=== PATIENT | male | born 1960 | race Two or more races ===

== ENCOUNTER → 2023-08-19 12:20 | Outpatient (CLI) | payer SELFPAY ==
--- NOTE | 2023-08-19 12:32 | XR_ITS ---
FINAL REPORT CLINICAL HISTORY: RT SHOULDER PAIN COMPARISON: None FINDINGS: RIGHT SHOULDER: Three views show no evidence of an acute, displaced fracture or dislocation of the visualized bony architecture. There is severe degenerative joint disease involving the glenohumeral joint. There is mild acromioclavicular degenerative change present.. IMPRESSION: Degenerative changes. No acute bony abnormality. Reviewed, Interpreted and Dictated by Sara Gabriel MD Transcribed by Sparkle Bae Authenticated and [facility]
== END ==
PROVIDERS: PCP Nurse Practitioner Family; Visit Provider Nurse Practitioner Family
DX: M25.511 Pain in right shoulder (principal)
CPT/HCPCS: 73030